=== PATIENT | female | born 1975 | race Hispanic/Latino ===

== ENCOUNTER 2017-02-13 04:52 | Emergency (ER) | payer BC ==
[2017-02-13 05:42] LABS: RAPID GROUP A STREP POSITIVE (NEGATIVE)
[2017-02-13] MEDS ORDERED: PENICILLIN G BENZATHINE LA 1.2 MILUNITS/2 ML SYG ONE (06:02)
== END 2017-02-13 06:46 | disposition home or self-care (01) ==
LOC: EDH 04:52
DX: J02.0 Streptococcal pharyngitis (principal); E11.9 Type 2 diabetes mellitus without complications
CPT/HCPCS: 87804 ×2; 87880; 96372; 99284; J0561

== ENCOUNTER 2017-04-08 23:45 | Inpatient (IN) | payer BC ==
[~2017-04-08] VITALS: Ht 162.6 cm; Wt 79.4 kg
[2017-04-09 00:17] LABS: BILIRUBIN,URINE Negative (NEGATIVE); COLOR,URINE Yellow (YELLOW); GLUCOSE, URINE (UA) >=1000 mg/dL (NEGATIVE); KETONES,URINE >=80 mg/dL (NEGATIVE); LEUKOCYTE ESTERASE ,URINE Negative (NEGATIVE); NITRATE,URINE Negative (NEGATIVE); OCCULT BLOOD,URINE Moderate (NEGATIVE); PROTEIN,URINE Trace (NEGATIVE)
[2017-04-09 00:21] LABS: APPEARANCE,URINE SLIGHTLY CLOUDY (CLEAR)
[2017-04-09 00:25] LABS: BACTERIA,URINE Rare /HPF (None Seen); MUCUS,URINE Rare LPF (None Seen); SQUAMOUS EPITHELIAL CELL,UR Few /LPF (0-2); YEAST,URINE BUDDING None Seen /HPF (None Seen)
[2017-04-09 00:49] LABS: BASOPHILS % (AUTO) 0.1 % (0.0-5.0); LYMPHOCYTES % (AUTO) 2.9 % (21.0-51.0); MEAN CORPUSCULAR HEMOGLOBIN 30.9 pg (27.0-33.0); MEAN CORPUSCULAR HGB CONC 33.2 g/dL (32.0-36.0); MONOCYTES % (AUTO) 5.9 % (3.0-13.0); NEUTROPHILS % (AUTO) 91.1 % (40.0-77.0); PLATELET COUNT (AUTO) 383 K/uL (130-400); RED BLOOD CELL COUNT(AUTO) 4.41 MIL/uL (4.00-5.50); RED CELL DISTRIBUTION WIDTH 12.9 % (11.0-15.5); WHITE BLOOD COUNT (AUTO) 14.8 K/uL (4.8-10.8)
[2017-04-09] MEDS ORDERED: ONDANSETRON HCL 4 MG/2 ML VIAL ONE (00:58)
[2017-04-09] MEDS ORDERED: ACETAMINOPHEN EXTRA STRENGTH 500 MG TABLET ONE (00:58)
[2017-04-09 01:01] LABS: INR 1.09 (0.85-1.15); PARTIAL THROMBOPLASTIN TIME 27.8 SEC (26.3-35.5); PROTHROMBIN TIME 11.4 SEC (9.6-11.6)
[2017-04-09] MEDS ORDERED: CEFTRIAXONE SODIUM 2 GM VIAL ONE (01:11)
[2017-04-09] MEDS ORDERED: SODIUM CHLORIDE 0.9% 1000ML 1,000 ML IV ONE ×2 (01:11→04:55)
[2017-04-09 01:14] LABS: ALANINE AMINOTRANSFERASE 16 U/L (12-78); ALBUMIN 2.6 g/dL (3.5-5.0); ASPARTATE AMINOTRANSFERASE 14 U/L (10-37); CARBON DIOXIDE 19 mmol/L (21-32); CHLORIDE 91 mmol/L (101-111); CREATINE KINASE MB < 0.5 ng/mL (0.5-3.6); CREATINE KINASE, TOTAL 43 U/L (21-232); GLOMERULAR FILTR. RATE CALC 64 mL/min (>60); MYOGLOBIN 42 ng/mL (10-92); POTASSIUM 3.7 mmol/L (3.5-5.1); SODIUM SERUM 130 mmol/L (136-145); TOTAL PROTEIN, SERUM 7.3 g/dL (6.0-8.3); TROPONIN I < 0.04 ng/mL (0.00-0.06); UREA NITROGEN, BLOOD 11 mg/dL (7-18)
[2017-04-09 01:16] LABS: GLUCOSE,RANDOM 586 mg/dL (70-105)
[2017-04-09 01:32] LABS: ABG BASE EXCESS -4.2 mmol/L (-2.0-3.0); ABG HCO3 19.4 mmol/L (21.0-28.0); ABG OXYGEN SATURATION 93.6 % (95.0-99.0); ABG PCO2 32 mmHg (32-45)
[2017-04-09] MEDS ORDERED: INSULIN HUMULIN R 100 UNIT/ML 3ML ONE (01:43)
[2017-04-09] MEDS ORDERED: ONDANSETRON HCL 4 MG/2 ML VIAL IV PRN (03:45)
[2017-04-09] MEDS ORDERED: CEFTRIAXONE 1GM/D5W 50ML 50 ML IV SCH (03:45)
[2017-04-09] MEDS ORDERED: HYDRALAZINE HCL 20 MG/ML VIAL IV PRN (03:45)
[2017-04-09 05:47] LABS: BASOPHILS % (AUTO) 0.2 % (0.0-5.0); HEMATOCRIT 39.5 % (36-48); LYMPHOCYTES % (AUTO) 4.7 % (21.0-51.0); MEAN CORPUSCULAR HEMOGLOBIN 31.2 pg (27.0-33.0); MEAN CORPUSCULAR HGB CONC 33.6 g/dL (32.0-36.0); MEAN CORPUSCULAR VOLUME 92.9 fL (79-99); MONOCYTES % (AUTO) 3.1 % (3.0-13.0); PLATELET COUNT (AUTO) 362 K/uL (130-400); RED BLOOD CELL COUNT(AUTO) 4.25 MIL/uL (4.00-5.50); RED CELL DISTRIBUTION WIDTH 13.1 % (11.0-15.5); WHITE BLOOD COUNT (AUTO) 12.3 K/uL (4.8-10.8)
[2017-04-09 05:55] LABS: CREATININE 0.7 mg/dL (0.5-1.5); POTASSIUM 3.8 mmol/L (3.5-5.1)
[2017-04-09] MEDS ORDERED: ACETAMINOPHEN 325 MG TAB ONE ×2 (06:04→11:08)
[2017-04-09] MEDS ORDERED: FAMOTIDINE 20MG TAB 20 MG TAB ONE (08:50)
[2017-04-09] MEDS: INSULIN LISPRO 100 UNIT/ML 3ML SQ SCH ×3 (11:30→20:21)
[2017-04-09] MEDS: FAMOTIDINE 20MG TAB 20 MG TAB PO SCH ×2 (12:00→20:17)
[2017-04-09] MEDS: SODIUM CHLORIDE 0.9% 1000ML 1,000 ML IV SCH ×2 (12:00→23:19)
[2017-04-09] MEDS ORDERED: INSULIN LISPRO 100 UNIT/ML 3ML SQ ONE (12:30)
[2017-04-09] MEDS ORDERED: IBUPROFEN 600 MG TABLET ONE (14:40)
[2017-04-09 16:00] VITALS: BP 130/72
[2017-04-09] MEDS ORDERED: ZOSYN 3.375GM+NS 50ML 50 ML IV SCH (19:15)
[2017-04-09] MEDS ORDERED: CEFEPIME 2GM+NS 100ML 100 ML IV SCH (19:15)
[2017-04-09 20:08] VITALS: BP 94/58
[2017-04-09] MEDS ORDERED: PNEUMOCOCCAL VACCINE POLYVALENT 0.5 ML/VIAL [PPV] IM ONE (20:15)
[2017-04-09] MEDS: CEFTRIAXONE SODIUM 1 GM IVP SCH (20:17)
[2017-04-09] MEDS: MEROPENEM 1 GM VIAL IVP SCH (23:19)
[2017-04-09] MEDS: ACETAMINOPHEN 325 MG TAB PO PRN (23:20)
[2017-04-09 23:37] VITALS: BP 131/102
[2017-04-10] MEDS: SODIUM CHLORIDE 0.9% 1000ML 1,000 ML IV SCH ×2 (04:00→12:31)
[2017-04-10 04:06] VITALS: BP 106/60
[2017-04-10 04:09] LABS: HEMATOCRIT 38.1 % (36-48); MEAN CORPUSCULAR HGB CONC 33.9 g/dL (32.0-36.0); MEAN CORPUSCULAR VOLUME 91.4 fL (79-99); PLATELET COUNT (AUTO) 342 K/uL (130-400); RED BLOOD CELL COUNT(AUTO) 4.17 MIL/uL (4.00-5.50); RED CELL DISTRIBUTION WIDTH 13.2 % (11.0-15.5); WHITE BLOOD COUNT (AUTO) 13.1 K/uL (4.8-10.8)
[2017-04-10 04:31] LABS: BAND NEUTROPHILS % (MANUAL) 5 % (0-2); LYMPHOCYTES % (MANUAL) 12 % (22-44); MONOCYTES % (MANUAL) 3 % (2-9); REACTIVE LYMPHOCYTES 1 % (0-0); SEGMENTED NEUTROPHILS % 79 % (40-70)
[2017-04-10 04:32] LABS: MAN.DIFF COMMENT-IMPRESSION MANUAL DIFFERENTIAL; PLATELET MORPHOLOGY COMMENT ADEQUATE
[2017-04-10] MEDS: MEROPENEM 1 GM VIAL IVP SCH ×3 (05:59→23:15)
[2017-04-10] MEDS: INSULIN LISPRO 100 UNIT/ML 3ML SQ SCH ×4 (06:00→21:51)
[2017-04-10 08:00] VITALS: BP 117/68
[2017-04-10] MEDS: ACETAMINOPHEN 325 MG TAB PO PRN ×2 (08:38→16:53)
[2017-04-10] MEDS: FAMOTIDINE 20MG TAB 20 MG TAB PO SCH ×2 (08:40→21:39)
[2017-04-10 12:00] VITALS: BP 110/68
[2017-04-10 16:00] VITALS: BP 110/75
[2017-04-10 19:15] VITALS: BP 104/70
[2017-04-10] MEDS: CEFTRIAXONE SODIUM 1 GM IVP SCH (21:43)
[2017-04-10 23:50] VITALS: BP 115/68
[2017-04-11] MEDS: SODIUM CHLORIDE 0.9% 1000ML 1,000 ML IV SCH ×4 (02:08→20:49)
[2017-04-11 03:00] VITALS: BP 125/74
[2017-04-11] MEDS: IBUPROFEN 600 MG TABLET PO PRN ×2 (03:05→15:20)
[2017-04-11 04:25] LABS: HEMATOCRIT 35.1 % (36-48); MEAN CORPUSCULAR HEMOGLOBIN 31.4 pg (27.0-33.0); MEAN CORPUSCULAR HGB CONC 34.7 g/dL (32.0-36.0); MEAN CORPUSCULAR VOLUME 90.4 fL (79-99); PLATELET COUNT (AUTO) 335 K/uL (130-400); RED BLOOD CELL COUNT(AUTO) 3.89 MIL/uL (4.00-5.50); RED CELL DISTRIBUTION WIDTH 13.1 % (11.0-15.5); WHITE BLOOD COUNT (AUTO) 11.3 K/uL (4.8-10.8)
[2017-04-11 04:34] LABS: CREATININE 0.5 mg/dL (0.5-1.5)
[2017-04-11] MEDS: MEROPENEM 1 GM VIAL IVP SCH (05:19)
[2017-04-11] MEDS: INSULIN LISPRO 100 UNIT/ML 3ML SQ SCH ×4 (06:49→20:55)
[2017-04-11 07:29] VITALS: BP 111/76
[2017-04-11] MEDS: FAMOTIDINE 20MG TAB 20 MG TAB PO SCH ×2 (08:42→20:43)
[2017-04-11] MEDS: INSULIN GLARGINE 100 UNITS/ML 10 ML VIAL SQ SCH (08:46)
[2017-04-11] MEDS ORDERED: MAGNESIUM SULFATE 2 GM in SODIUM CHLORIDE 0.9% 50 ML IV SCH (10:00)
[2017-04-11] MEDS ORDERED: POTASSIUM CHLORIDE 20MEQ/100ML 100 ML IV PRN (10:00)
[2017-04-11] MEDS ORDERED: POTASSIUM CHLORIDE 10% ELIXIR 20 MEQ/15 ML UDCUP PO PRN (10:00)
[2017-04-11] MEDS ORDERED: LIDOCAINE HCL-MPF 1% 2ML VIAL IVP PRN (10:00)
[2017-04-11] MEDS: LEVOFLOXACIN 500 MG/D5W 100 ML 100 ML IV SCH (10:44)
[2017-04-11] MEDS: POTASSIUM CHLORIDE 20 MEQ ERTAB PO PRN ×3 (10:44→22:32)
[2017-04-11 11:27] VITALS: BP 118/73
[2017-04-11 16:00] VITALS: BP 141/82
[2017-04-11 19:25] VITALS: BP 111/69
[2017-04-11] MEDS: CEFTRIAXONE SODIUM 1 GM IVP SCH (20:48)
[2017-04-11 23:00] VITALS: BP 100/63
[2017-04-12] MEDS: POTASSIUM CHLORIDE 20 MEQ ERTAB PO PRN (00:15)
[2017-04-12 03:00] VITALS: BP 107/72
[2017-04-12 05:02] LABS: CREATININE 0.4 mg/dL (0.5-1.5); MAGNESIUM 1.9 mg/dL (1.80-2.40); POTASSIUM 3.3 mmol/L (3.5-5.1)
[2017-04-12] MEDS: SODIUM CHLORIDE 0.9% 1000ML 1,000 ML IV SCH ×3 (05:38→21:52)
[2017-04-12] MEDS: INSULIN LISPRO 100 UNIT/ML 3ML SQ SCH ×4 (06:16→22:15)
[2017-04-12] MEDS ORDERED: MAGNESIUM 2GM PREMIX 50ML 50 ML IV ONE (07:36)
[2017-04-12] MEDS ORDERED: MAGNESIUM 2GM PREMIX 50ML 50 ML IV SCH (07:45)
[2017-04-12 08:00] VITALS: BP 112/69
[2017-04-12] MEDS: FAMOTIDINE 20MG TAB 20 MG TAB PO SCH ×2 (08:02→21:52)
[2017-04-12] MEDS: LEVOFLOXACIN 500 MG/D5W 100 ML 100 ML IV SCH (10:19)
[2017-04-12] MEDS: POTASSIUM BICARB/CIT AC 25 MEQ TABLET.EFF PO SCH ×2 (10:19→21:53)
[2017-04-12] MEDS: INSULIN GLARGINE 100 UNITS/ML 10 ML VIAL SQ SCH (10:34)
[2017-04-12 12:00] VITALS: BP 110/60
[2017-04-12 16:00] VITALS: BP 117/77
[2017-04-12 19:33] VITALS: BP 140/86
[2017-04-12] MEDS: CEFTRIAXONE SODIUM 1 GM IVP SCH (21:59)
[2017-04-13 00:01] VITALS: BP 115/73
[2017-04-13 03:59] VITALS: BP 125/89
[2017-04-13] MEDS: SODIUM CHLORIDE 0.9% 1000ML 1,000 ML IV SCH ×2 (06:02→12:00)
[2017-04-13] MEDS: INSULIN LISPRO 100 UNIT/ML 3ML SQ SCH ×2 (06:02→12:20)
[2017-04-13 08:00] VITALS: BP 103/68
[2017-04-13 08:14] LABS: BASOPHILS % (AUTO) 0.3 % (0.0-5.0); EOSINOPHILS % (AUTO) 0.7 % (0.0-8.0); HEMATOCRIT 34.6 % (36-48); LYMPHOCYTES % (AUTO) 31.6 % (21.0-51.0); MEAN CORPUSCULAR HEMOGLOBIN 31.1 pg (27.0-33.0); MEAN CORPUSCULAR HGB CONC 35.2 g/dL (32.0-36.0); MEAN CORPUSCULAR VOLUME 88.4 fL (79-99); MONOCYTES % (AUTO) 17.6 % (3.0-13.0); NEUTROPHILS % (AUTO) 49.8 % (40.0-77.0); PLATELET COUNT (AUTO) 408 K/uL (130-400); RED BLOOD CELL COUNT(AUTO) 3.91 MIL/uL (4.00-5.50); RED CELL DISTRIBUTION WIDTH 13.3 % (11.0-15.5); WHITE BLOOD COUNT (AUTO) 8.3 K/uL (4.8-10.8)
[2017-04-13 08:23] LABS: CREATININE 0.5 mg/dL (0.5-1.5); POTASSIUM 3.3 mmol/L (3.5-5.1)
[2017-04-13] MEDS: POTASSIUM BICARB/CIT AC 25 MEQ TABLET.EFF PO SCH (09:00)
[2017-04-13] MEDS: FAMOTIDINE 20MG TAB 20 MG TAB PO SCH (09:05)
[2017-04-13] MEDS: INSULIN GLARGINE 100 UNITS/ML 10 ML VIAL SQ SCH (09:05)
[2017-04-13] MEDS: LEVOFLOXACIN 500 MG/D5W 100 ML 100 ML IV SCH (09:05)
[2017-04-13 12:00] VITALS: BP 117/76
[2017-04-13] MEDS: POTASSIUM CHLORIDE 20 MEQ ERTAB PO PRN ×2 (12:39→14:56)
[2017-04-13] MEDS ORDERED: LEVO500T2 PO (14:36)
[2017-04-13] MEDS ORDERED: METF500T6 PO (14:36)
[2017-04-13] MEDS ORDERED: PANT40TA25 PO (14:36)
[2017-04-13 16:00] VITALS: BP 110/86
== END 2017-04-13 16:55 | disposition home or self-care (01) | DRG 871 ==
LOC: EDH 23:45 → EDHIP 04-09 01:20 → 3AH 04-09 15:09
PROVIDERS: ADMIT Family Medicine; ATTEND Family Medicine
DX: A41.9 Sepsis, unspecified organism (principal); E11.10 Type 2 diabetes mellitus with ketoacidosis without coma; E87.1 Hypo-osmolality and hyponatremia; N39.0 Urinary tract infection, site not specified; R65.20 Severe sepsis without septic shock; E11.65 Type 2 diabetes mellitus with hyperglycemia; E86.0 Dehydration; E66.9 Obesity, unspecified; Z68.30 Body mass index [BMI] 30.0-30.9, adult
CPT/HCPCS: 36415; 36600; 71045; 80048; 80053; 81001; 82009; 82550; 82553; 82803; 82948; 83036; 83605; 83735; 83874; 84484; 85025; 85027; 85610; 85730; 87040; 87088; 87186; 87804; 87880; 93005; 99291; A4218; J0692; J0696; J1815; J1956; J2185; J2405; J3475; J7030

== ENCOUNTER 2023-01-22 20:30 | Emergency (ER) | payer BC ==
[~2023-01-22] VITALS: Ht 162.6 cm; Wt 96.6 kg
[~2023-01-22 20:30] MED LIST: LEVO500T2 PO; METF-444 PO; PANT40TA55 PO
[2023-01-23 02:04] LABS: BASOPHILS # (AUTO) 0.07 K/uL (0.00-0.20); BASOPHILS % (AUTO) 0.7 % (0.0-5.0); EOSINOPHILS # (AUTO) 0.28 K/uL (0.00-0.70); EOSINOPHILS % (AUTO) 2.8 % (0.0-8.0); HEMATOCRIT 39.5 % (36-48); IMMATURE GRANULOCYTE ABSOLUTE 0.04 K/uL (0-1); LYMPHOCYTES # (AUTO) 3.1 K/uL (1.0-4.8); MEAN CORPUSCULAR HGB CONC 34.7 g/dL (32.0-36.0); MEAN CORPUSCULAR VOLUME 86.4 fL (79-99); MONOCYTES # (AUTO) 0.6 K/uL (0.1-1.0); MONOCYTES % (AUTO) 6.4 % (3.0-13.0); NEUTROPHILS # (AUTO) 5.8 K/uL (1.8-7.7); NEUTROPHILS % (AUTO) 58.7 % (40.0-77.0); PLATELET COUNT (AUTO) 466 K/uL (130-400); RED BLOOD CELL COUNT(AUTO) 4.57 MIL/uL (4.00-5.50); RED CELL DISTRIBUTION WIDTH 12.6 % (11.0-15.5); WHITE BLOOD COUNT (AUTO) 9.8 K/uL (4.8-10.8)
[2023-01-23 02:43] LABS: ALBUMIN 1.8 g/dL (3.5-5.0); BILIRUBIN,TOTAL 0.2 mg/dL (0.2-1.0); POTASSIUM 4.2 mmol/L (3.5-5.1); TOTAL PROTEIN, SERUM 6.3 g/dL (6.0-8.3)
[2023-01-23] MEDS ORDERED: IOHEXOL 350 MG/ML 100ML INFUS..BTL IV ONE (04:09)
[2023-01-23] MEDS ORDERED: ACETAMINOPHEN 500 MG TABLET ONE (04:13)
[2023-01-23 04:22] LABS: HCG,QUALITATIVE URINE NEGATIVE (NEGATIVE)
[2023-01-23 04:23] LABS: APPEARANCE,URINE CLOUDY (CLEAR); BILIRUBIN,URINE NEGATIVE (NEGATIVE); COLOR,URINE YELLOW (YELLOW); GLUCOSE, URINE (UA) >=1000 mg/dL (NEGATIVE); KETONES,URINE NEGATIVE (NEGATIVE); LEUKOCYTE ESTERASE ,URINE NEGATIVE Leu/uL (NEGATIVE); NITRATE,URINE NEGATIVE (NEGATIVE); OCCULT BLOOD,URINE LARGE (NEGATIVE); PH,URINE 6.5 (5.0-8.0); PROTEIN,URINE 600 mg/dL (NEGATIVE); UROBILINOGEN,URINE 0.2 mg/dL (0.2-1.0)
[2023-01-23 04:26] LABS: ADD UA MICROSCOPIC YES
[2023-01-23 04:27] LABS: MUCUS,URINE RARE LPF (None Seen); RBC,URINE 26-50 /HPF (0-1); SQUAMOUS EPITHELIAL CELL,UR MOD /HPF (0-2); WBC,URINE 26-50 /HPF (0-1)
[2023-01-23] MEDS ORDERED: ACETAMINOPHEN 500 MG TABLET PO ONE (05:00)
[2023-01-23] MEDS ORDERED: CEPH500B PO (06:18)
[2023-01-23] MEDS ORDERED: CEPHALEXIN 500 MG CAPSULE ONE (06:29)
[2023-01-23] MEDS ORDERED: CEPHALEXIN 500 MG CAPSULE PO ONE (06:30)
[2023-01-23 06:47] VITALS: BP 165/86; PULSE 72; RESP 18; O2SAT 98
== END 2023-01-23 06:48 | disposition home or self-care (01) ==
LOC: EDH 20:30
DX: R60.0 Localized edema (principal); E88.09 Other disorders of plasma-protein metabolism, not elsewhere classified; N39.0 Urinary tract infection, site not specified; E11.9 Type 2 diabetes mellitus without complications; Z79.84 Long term (current) use of oral hypoglycemic drugs; Z79.899 Other long term (current) drug therapy
CPT/HCPCS: 99285; 80053; 85025; 87088; 81001; 81025; 36415; 74177; 93970; 71045; 93005; Q9967